=== PATIENT | female | born 1945 | race Caucasian/White ===

== ENCOUNTER 2017-10-13 18:02 | Emergency (ER) | payer MEDICARE ==
[~2017-10-13] VITALS: Ht 157.5 cm; Wt 82.7 kg
[2017-10-13] MEDS ORDERED: ASPIRIN 81 MG TABLET CHEW PO ONE (18:30)
[2017-10-13 18:52] LABS: BASOPHILS # (AUTO) 0.01 x10^3/uL (0-0.1); BASOPHILS % (AUTO) 0 % (0-1); EOSINOPHILS # (AUTO) 0.46 x10^3/uL (0-0.4); EOSINOPHILS % (AUTO) 5 % (1-7); LYMPHOCYTES # (AUTO) 1.08 x10^3/uL (1-3.4); LYMPHOCYTES % (AUTO) 11 % (22-44); MD NO; MEAN CORPUSCULAR HEMOGLOBIN 31.1 pg (27.0-34.8); MEAN CORPUSCULAR HGB CONC 34.1 g/dL (32.4-35.8); MEAN CORPUSCULAR VOLUME 91.3 fL (80-100); MEAN PLATELET VOLUME 6.9 fL (7.4-10.4); MONOCYTES # (AUTO) 0.42 x10^3/uL (0.2-0.8); MONOCYTES % (AUTO) 4 % (2-9); NEUTROPHILS # (AUTO) 7.51 x10^3/uL (1.8-6.8); NEUTROPHILS % (AUTO) 79 % (42-75); PLATELET COUNT 279 x10^3/uL (130-400); RED BLOOD COUNT 4.22 x10^6/uL (3.82-5.3); RED CELL DISTRIBUTION WIDTH 14.5 % (9.6-15.2)
[2017-10-13] MEDS ORDERED: ASPIRIN 81 MG TABLET CHEW ONE (18:52)
[2017-10-13 19:00] LABS: ALBUMIN 3.8 g/dL (3.4-5.0); ANION GAP 9 mmol/L (5-15); CALCIUM 9.7 mg/dL (8.5-10.1); CHLORIDE 102 mmol/L (98-107); CREATININE 1.32 mg/dL (0.55-1.02)
[2017-10-13] MEDS ORDERED: SODIUM CHLORIDE 0.9% 1,000ML IVBOLUS ONE (19:00)
[2017-10-13 19:05] LABS: TROPONIN I < 0.015 ng/mL (0.000-0.045)
[2017-10-13] MEDS ORDERED: POTASSIUM CHLORIDE 20 MEQ TAB.ER.PRT ONE (19:22)
[2017-10-13] MEDS ORDERED: POTASSIUM CHLORIDE 20 MEQ TAB.ER.PRT PO ONE (19:30)
[2017-10-13 19:50] LABS: MICROSCOPIC AUTO
[2017-10-13 19:51] LABS: CULTURE INDICATED? YES
[2017-10-13 20:41] VITALS: BP 143/67
== END 2017-10-13 20:44 | disposition home or self-care (01) ==
LOC: ED 20:38
DX: N30.00 Acute cystitis without hematuria (principal); R42 Dizziness and giddiness; E11.9 Type 2 diabetes mellitus without complications; E78.5 Hyperlipidemia, unspecified; I10 Essential (primary) hypertension
CPT/HCPCS: 36415; 71045; 80048; 81001; 82040; 84484; 85025; 87086; 93005; 99285; J7030

== ENCOUNTER → 2018-08-17 | Outpatient (CLI) | payer MEDICARE | END | disposition home or self-care (01) | LOC: RAD 18:11 | PROVIDERS: ATTEND Family Medicine | DX: M54.9 Dorsalgia, unspecified (principal) | CPT/HCPCS: 74176 ==

== ENCOUNTER 2018-09-27 11:47 | Outpatient (CLI) | payer MEDICARE ==
[2018-09-27] MEDS ORDERED: OMNIPAQUE 350 MG/ML, 100ML BOTTLE ONE (15:00)
== END 2018-09-27 23:59 | disposition home or self-care (01) ==
LOC: CFH 11:47
PROVIDERS: ATTEND Family Medicine
DX: K76.0 Fatty (change of) liver, not elsewhere classified (principal); D73.89 Other diseases of spleen; Z90.710 Acquired absence of both cervix and uterus
CPT/HCPCS: 74177; Q9967